=== PATIENT | female | born 1955 | race Caucasian/White ===

== ENCOUNTER → 2022-10-19 | Day surgery (SDC) | payer OTHER ==
--- NOTE | 2022-10-16 11:30 | RAD REPORT ---
EXAM DESCRIPTION: RAD - Chest Pa And Lat (2 Views) - 10/16/2022 11:22 am CLINICAL HISTORY: pre op pending foot surgery Chest pain. COMPARISON: No comparisons FINDINGS: The lungs are clear. The heart is normal in size. No displaced fractures. IMPRESSION: No acute or concerning finding suspected.
[2022-10-16 11:32] LABS: Absolute Lymphocytes (CBC) 1.9 K/uL (0.7-4.9); Hematocrit 36.6 % (36.0-45.0); Lymphocytes % 30.8 % (15.3-44.8); MCV 83.6 fL (80-100); RBC Red Blood Cell Count 4.38 M/uL (3.86-4.86)
--- NOTE | 2022-10-16 15:48 | EKG ---
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
--- NOTE | 2022-10-18 18:31 | PREOPHP ---
Date of Admission: 10/19/2022 History Of Present Illness: This patient presented to my office with a chief complaint of a painful fourth toe present on the right foot and a painful fifth metatarsal present on the right foot for a n umber of weeks. The patient has had pain with this on and off for years, but has now gotten worse in the last 3 weeks. The patient's pain is sore and throbbing, moderate in severity, worse with activi ty, improved with rest. Past Medical History: Includes arthritis, anemia, asthma, diabetes, high cholesterol, psoriasis, and GERD. Current Medications: Include Ozempic, hydroxyzine 25 mg, sertraline 25 mg, metformin 500 mg, pantopr azole 40 mg a day, sucralfate 1 g, fenofibric acid, atorvastatin 20 mg, tizanidine 4 mg, and hydrocod one 5/325. Allergies: NKDA. Past Surgical History: Patient has had multiple surgeries, but specifically to her foot. She has almaguer d a surgery to the fifth metatarsal on the left foot. Surgery to the right ankle, gastric sleeve pro cedure, lap band procedure, repaired perforated duodenum due to ulcer, arthroscopy of her left knee. Social History: Patient denies tobacco or alcohol use and recreational drug use. Family History: Unremarkable. Objective: Vital Signs: Weight 196 pounds, height 5 feet 5 inches. General Appearance: Patient is healthy, well developed, well nourished, well oriented x3. Cardiovascular: Dorsalis pedis and posterior tibial pulses are 4/4 bilaterally. Capillary refill ti me is less than 3 seconds. Temperature gradient is within normal limits. There is no claudication c omplaint or varicosities noted bilaterally. Musculoskeletal: Evaluation reveals a flexible cavus fo ot type on the right and a flexible pes planus foot type on the left. Subtalar joint shows increased varus bilaterally. There is forefoot supinatus with adductus bilaterally. There is medial eminence of the first metatarsal head with range of motion 80 degrees on the right. There is hallux valgus n oted on the right. Equinus is noted to be 0 degrees bilaterally per goniometer measurement. Digital examination reveals adducted toes at the MPJ 2-5 and abducted DIPJ on the second toe and the DIPJ of the fourth toe right shows adduction. Muscle, knee, and ankle assessment are all within normal limi ts. There are no subcutaneous soft tissue masses noted. Skin evaluation reveals no rash, ulcer, tab or, or contracture except for callus present sub fifth MPJ on the right foot without redness, swellin g, or temp. Neurologic evaluation reveals deep tendon reflexes of the patella and Achilles to be 5/5 bilaterally. Vibratory and sharp dull sensation within normal limits. X-ray evaluation of the righ t foot reveals a deviation of the fourth toe at the DIPJ in adduction. There is a deviation of the f ifth metatarsal from the base distally on the right foot with an increased intermetatarsal angle. Fr acture, tumor noted on the right foot. Bones are well mineralized. There is an adduction of the met atarsals 1-4 seen. The remainder of the x-ray is within normal limits. Diagnoses: Hammertoe deformity, fourth digit, right foot; bunionette deformity, right foot; pain in right toes; pain in right foot. The patient requests surgical management due to lack of changing shoe gear, anti-inflammatories, orth otics have caused limited release. The recommendation is for a fusion of the DIPJ fourth toe right f oot with fixation of Choice, K-wire, or screw depending intraoperatively. Second procedure recommend ation is for an osteotomy of the fifth metatarsal at the base, closing osteotomy with fixation. This is due to the fact that the patient's fifth metatarsal is significantly splayed and the shaft of the fifth metatarsal is extremely thinned/narrowed. Patient understands risks, benefits, and alternativ es of the above-mentioned procedures including, but not limited to the risk of pain; swelling; numbne ss; stiffness; infection; nonhealing of skin, soft tissue, or bone. Patient also understands, she wi ll be nonweightbearing for approximately 6-8 weeks due to the nature of the procedures and the risk o f fracture of the correction due to weightbearing. Patient understands treatment options including c ontinued conservative care, but this has not resulted in satisfactory relief for the patient when amb ulating. Patient has been instructed on use of cold therapy unit and seal-tight to keep the bandage dry. Patient has a Roll-A-Bout knee roller to stay nonweightbearing and crutches at home and is awar e of the use to multiple other procedures she has had done. Patient has been made aware of the risk of COVID infections although much diminished at this time, but to follow CDC guidelines to prevent co mplications including blood clots and postop infection complication. The patient will take an 81 mg aspirin starting after surgery until notified otherwise, mainly while nonweightbearing. Patient is s cheduled for surgery at [facility] on October 19. The preoperative labs have been performed and me dical H and P will be completed by Anesthesia. The patient has her own postop pain medication and almaguer s not been prescribed additional. CYRIL/SADAF Voice ID: [id number]
[~2022-10-19] MED LIST: BUPIVACAINE 0.5% PF 10 ML VIAL ONE; CEFAZOLIN SODIUM 1 GM/VIAL ONE; EPHEDRINE SULF 50 MG/ML VIAL ONE; FENTANYL CITR 100 MCG/2 ML ONE; KETOROLAC 30 MG/ML INJ ONE; LIDOCAINE 1% MPF 30 ML VIAL ONE; LIDOCAINE 2% MPF 5 ML VIAL ONE; MIDAZOLAM HCL 2 MG/2 ML INJ ONE; NA CHLORIDE 0.9% 1,000 ML ONE; NA CHLORIDE 0.9% 50 ML ONE; ONDANSETRON 4 MG/2 ML VIAL ONE; dexAMETHasone 4 MG/ML VIAL ONE; propofoL 200 MG/20 ML VIAL IV ONE
--- NOTE | 2022-10-19 09:37 | RAD REPORT ---
EXAM DESCRIPTION: RAD - Foot Right 2 View - 10/19/2022 9:29 am CLINICAL HISTORY: FIXATION 5TH METATARSAL , WITH 4TH TOE FUSION COMPARISON: No comparisons FINDINGS: Fluoroscopy time 0.1 minutes.
[2022-10-19 10:27] VITALS: TEMP 97
--- NOTE | 2022-10-19 10:43 | OP ---
Date of Procedure: 10/19/2022 Surgeon: Jorge L Elizabeth DPM Preoperative Diagnoses: 1.Hammertoe deformity, fourth digit, DIPJ, right foot. 2.Bunionette deformity, fifth metatarsal, right foot. Postoperative Diagnoses: 1.Hammertoe deformity, fourth digit, DIPJ, right foot. 2.Bunionette deformity, fifth metatarsal, right foot. Procedures: 1.Fusion fourth toe DIPJ with screw fixation, 2.5 mm x 14 mm. 2.Based closing wedge osteotomy fifth metatarsal with staple fixation, 10 mm. Anesthesia: General. Procedure In Detail: The patient was brought into the operating room, placed on the operating table in supine position. General anesthesia was induced. The patient was prepped and draped in the usual sterile manner. The right extremity was elevated to 60 degrees and an Esmarch bandage was used to e xsanguinate the blood supply. Pneumatic ankle tourniquet was elevated to 250 mmHg. Attention was th en directed to the fourth toe of the right foot. Two transverse incisions were made semi-elliptical approximately 1 cm in length over the DIPJ. The incision was deepened and the wedge of skin was timo doug. The extensor digitorum longus tendon was transversely incised and reflected proximally. Utiliz ing a 15 C blade, the medial and lateral collateral ligaments were incised freeing the head of the mi ddle phalanx into view, which the cartilaginous surface was then removed utilizing an oscillating saw . The base of the distal phalanx was then evaluated and a rongeur was used to remove the cartilagino us surface. The bones were then apposed. Slight angulation was performed on the middle phalanx to m eldon the toe straight. The flexor tendon was cut to release contracture present and a K-wire was then introduced into the distal phalanx and retrograded into the middle phalanx. The area was measured a nd a 14 mm x 2.5 mm headless screw was then utilized to fixate the distal phalanx to the middle phala nx under imaging. Excellent alignment and screw fixation and placement and bone contact were seen. The K-wire was then removed. The toe was flushed with copious amounts of sterile saline. The skin w as then closed utilizing 4-0 Prolene horizontal mattress suture and the stab incision at the tip of t he toe was closed utilizing 4-0 Prolene suture. Attention was then directed to the base of the fifth metatarsal where a 5 cm linear incision was made overlying the proximal aspect of the fifth metatars al. Position was confirmed utilizing imaging that the area of intent was the just distal to the base of the fifth metatarsal where it was accessible next to the fourth metatarsal at the apex of the fou rth and fifth metatarsal. The incision was deepened via sharp and blunt dissection. Periosteal tiss ue was reflected medial and lateral utilizing a 15 blade. All neurologic structures were avoided. A ll bleeders were clamped and bovied. Medial and lateral shaft were identified. Utilizing a sagittal saw, an osteotomy was created perpendicular to the shaft of the fifth metatarsal and then a second b one cut was made, slightly angulated to remove approximately 2 mm wedge of bone. The air was feather ed with gentle pressure on the distal aspect of the fifth metatarsal head from lateral to medial. Th e osteotomy closed and was fixated utilizing a 10 mm staple. A hole was drilled in the proximal and distal sides of the osteotomy with the osteotomy closed. Then, a staple was then introduced. Excell ent compression was obtained utilizing imaging to confirm closure and placement. The area was flushe d with copious amounts of sterile saline. Periosteal tissue was closed utilizing 3-0 Vicryl suture. Subcutaneous skin was reapproximated utilizing a 3-0 Vicryl suture. Skin was closed utilizing 4-0 P rolene horizontal mattress suture. The areas were injected with 10 cc of 0.5% Marcaine plain total. The area was dressed with Adaptic, dry sterile gauze, dry sterile Hermila, Kerlix, cold therapy unit, and Selvin bandaging. Capillary return was seen to be instantaneous after release of the tourniquet. T he distal aspect of fourth toe was visualized with good cap return. The patient was then placed in a posterior splint for immobilization and protection and will remain nonweightbearing. The splint was attached with an Selvin bandage. CYRIL/SADAF Voice ID: [id number] Report ID: [id number]
--- NOTE | 2022-10-19 10:43 | DS ---
Date Of Surgery: 10/19/2022. Surgeon: Jorge L Elizabeth DPM. Preoperative Diagnoses: Hammertoe deformity, DIPJ, fourth digit, right foot; bunionette deformity, f ifth metatarsal, right foot. Postoperative Diagnoses: Hammertoe deformity, DIPJ, fourth digit, right foot; bunionette deformity, fifth metatarsal, right foot. Procedure: 1.Fusion of fourth toe DIPJ with headless 2.5 x 14 mm screw. 2.Medial closing osteotomy with staple fixation base of fifth metatarsal. Hospital Course: The patient tolerated the procedure and anesthesia well. The patient will be disch arged to recovery in satisfactory condition. The patient will ambulate nonweightbearing with a knee scooter and crutches. The patient will be seen in my office in 1 week for postoperative care. The p atient has postop medications and emergency phone number with written postop instructions. The patie nt will be discharged to home per Anesthesia guidelines. CYRIL/SADAF Voice ID: [id number] Report ID: [id number]
--- NOTE | 2022-10-19 10:46 | RAD REPORT ---
EXAM DESCRIPTION: RAD - Foot Right 2 View - 10/19/2022 10:31 am CLINICAL HISTORY: S/P R 5TH METATRASAL OSTEOTOMY W/ 4TH TOE FUSION COMPARISON: Foot Right 2 View dated 10/19/2022 FINDINGS: Postsurgical changes are seen involving the fourth toe. Small bony clip with osteotomy kyle nges noted proximal fifth metatarsal. Bone detail is limited by plaster splint material
[2022-10-19 12:02] VITALS: BP 116/60; O2SAT 96
== END ==
LOC: OR 06:02
PROVIDERS: ATTEND Podiatrist
PROC: 0SGP04Z Fusion of Right Toe Phalangeal Joint with Internal Fixation Device, Open Approach (ICD-10-PCS; 2022-10-19)
PROC: 0QSN04Z Reposition Right Metatarsal with Internal Fixation Device, Open Approach (ICD-10-PCS; principal; 2022-10-19 07:30)
DX: M20.41 Other hammer toe(s) (acquired), right foot (principal); M21.621 Bunionette of right foot; M79.674 Pain in right toe(s); M79.671 Pain in right foot
CPT/HCPCS: 28110; 28285; 93005; 85025; 80048; 36415; 82947; 71046; 73620 ×2; J2704 ×2; J1100; J2001; J2250; J3010; J2405; J7030 ×2; J0690